=== PATIENT | female | born 1995 | race Caucasian/White ===

== ENCOUNTER 2018-01-18 21:37 | Observation (INO) | payer OTHER ==
[~2018-01-18] VITALS: Ht 160 cm; Wt 99.8 kg
[~2018-01-18 21:37] MED LIST: MACROBID 100 M100 MG PO; ZOFRAN ODT4 M1 SL
[2018-01-18 22:20] VITALS: BP 139/67
== END 2018-01-19 09:00 ==
LOC: CBCO 21:37 → GNO 22:13
DX: O47.1 False labor at or after 37 completed weeks of gestation (principal); Z3A.39 39 weeks gestation of pregnancy
CPT/HCPCS: G0378; G0463

== ENCOUNTER 2018-01-20 00:11 | Inpatient (IN) | payer OTHER ==
[~2018-01-20] VITALS: Ht 160 cm; Wt 104.3 kg
[2018-01-20 00:53] LABS: ABSOLUTE BASOPHIL COUNT 0 /CUMM (0.0-0.2); ABSOLUTE EOSINOPHIL COUNT 0.1 /CUMM (0.0-0.7); ABSOLUTE GRANULOCYTE CT 8.9 /CUMM (1.4-6.5); ABSOLUTE LYMPH COUNT 1.5 /CUMM (1.2-3.4); ABSOLUTE MONOCYTE COUNT 0.8 /CUMM (0.10-0.60); BASOPHIL % 0.2 % (0.0-2.0); EOSINOPHIL % 0.7 % (0-5); GRANULOCYTE % 78.6 % (42.2-75.2); HEMATOCRIT 33.1 % (37-47); MEAN CORPUSCULAR HGB 32.4 PG (27.0-31.0); MEAN CORPUSCULAR HGB CONC 34.6 G/DL (33.0-37.0); MEAN CORPUSCULAR VOLUME 93.8 FL (81.0-99.0); MEAN PLATELET VOLUME 8.5 FL (7.4-10.4); PLATELET COUNT 230 /CUMM (130-400); RBC DISTRIBUTION WIDTH 12.4 % (11.5-14.5); RED BLOOD CELL CT 3.53 /CUMM (4.20-5.40); WHITE BLOOD CELL COUNT 11.3 /CUMM (4.8-10.8)
--- NOTE | 2018-01-20 01:00 | History & Physical ---
General Information and HPI MD Statement: I have seen and personally examined YAO KIRK and documented this H&P. The patient is a 22 year old female at [39] weeks and [2] days gestation who presented with a chief complaint of [CTXS]. Source of Information: patient Exam Limitations: no limitations History of Present Illness: 22yo, , 39 2/7wks, c/o ctxs for 2 days, getting stronger and closer, came in for evaluation. denies VB or LOF, reports GFM care started at 8 wks, uncomplicated thus far. 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 EENTM: Reports: no symptoms. Cardiovascular: Reports: no symptoms. Respiratory: Reports: no symptoms. GI: Reports: no symptoms. Genitourinary: Reports: see HPI. Musculoskeletal: Reports: no symptoms. Skin: Reports: no symptoms. Neurological/Psychological: Reports: no symptoms. Hematologic/Endocrine: Reports: no symptoms. Immunologic/Allergic: Reports: no symptoms. All Other Systems: Reviewed and Negative Exam & Diagnostic Data Obstetric Exam Wgt Gained During : 47lbs Pelvimetry: adequate Dilation (cm): 5 Effacement (%): 90 Station: -2 Membranes: intact Fluid: unknown Fundal Height (cm): 39 Multiple Gestation? No Contractions: irregular Infant #1 - FHR Baseline: 140 Category: 1 Estimated Weight: 3300g Presentation: vertex Patient for Induction? No Physical Exam: VSS General: NAD Abdomen: gravid, soft, nontender. Ext: DCT (-) Labs Blood Type & Rh: O positive Antibody Screen: negative Hct/Hgb & Platelets #1: 10.9/34.3%,[id number] Hct/Hgb & Platelets #2: 10.7/34.7%,[id number] Rubella: non immune VDRL #1: negative VDRL #2: negative HbsAg: negative HIV #1: negative HIV #2 negative 1 Hr P Group B Strep: negative Initial Ultrasound: IUP at 8 wwks Anatomy Ultrasound: nl Genetic Testing: nl Last 24 Hrs of Labs/Jim: Laboratory Tests 01/20/18 0030: CBC w Diff NO MAN DIFF REQ, RBC 3.53 L, MCV 93.8, MCH 32.4 H, MCHC 34.6, RDW 12.4, MPV 8.5, Gran % 78.6 H, Lymphocytes % 13.6 L, Monocytes % 6.9, Eosinophils % 0.7, Basophils % 0.2, Absolute Granulocytes 8.9 H, Absolute Lymphocytes 1.5, Absolute Monocytes 0.8 H, Absolute Eosinophils 0.1, Absolute Basophils 0, Urine Color Pending, Urine Clarity Pending, Urine pH Pending, Ur Specific [place] Pending, Urine Protein Pending, Urine Ketones Pending, Urine Nitrite Pending, Urine Bilirubin Pending, Urine Urobilinogen Pending, Ur Leukocyte Esterase Pending, Ur Microscopic SEDIMENT EXAMINED, Urine RBC Pending, Urine Hemoglobin Pending, Urine Glucose Pending Assessment/Plan Assessment/Plan: 22yo, 39 2/7wks, labor 1. admit pt, admission labs 2. pt request epidural for pain management, will hydrate first ,then inform anesthesia 3. will monitor closley As Ranked By This Provider Problem List: 1. Core Measures Venous Thromboembolism VTE Risk Factors / No Mechanical VTE Prophylaxis d/t LowRisk-No Interven Req'd No VTE Pharm Prophylaxis d/t LowRisk-No Interven Req'd Attending Review Statement Attending Statement Attending MD Statement: examined this patient, discussed with family, discussed w/nursing
--- NOTE | 2018-01-20 05:12 | PN- OBGYN ---
Surgical Brief Attending Note Brief Attending Note: late entry for 3 PM pt is comfortable with epidural, no complaints on TOCO: ctxs irregular, FHR assuring will start pitocin agmentation, plan of care reveiwed with pt, she undertsand and agreed
--- NOTE | 2018-01-20 06:23 | PN- OBGYN ---
Surgical Brief Attending Note Brief Attending Note: pt is comfortable with epidural, no complaints. pitocin at 6 mU/min on TOCO: ctxs q 2 min, FHR baseline 140, moderate variability, + acels, no decels cervix 8/80%/-2 will continue current management, monitor closely
[2018-01-20 08:40] VITALS: BP 119/65
--- NOTE | 2018-01-20 08:42 | PN- OBGYN ---
Surgical Brief Attending Note Brief Attending Note: pt comfortable w/ epidural afeb, v/ss fht 140s moderate variability +acc no dec toco q 1-3min pit@ 3mu sve rim / 100 / -2 a/p P0 39wks protracted active labor on pit, and maternal status reassuring -cont current mgmt
--- NOTE | 2018-01-20 10:06 | PN- OBGYN ---
Surgical Brief Attending Note Brief Attending Note: pt c/o rectal pressure, afeb, v/ss fht 130s mod jose +acc no dec toco q 1-3 pit @ 3mu sve FD / -1, arom clr -contact anesthesia for epidural "top-off" -await descent of vtx to begin pushing
--- NOTE | 2018-01-20 12:09 | PN- OBGYN ---
Surgical Brief Attending Note Brief Attending Note: pt w/ intermittent rectal pressure afeb, v/ss fht 130s mod variability +acc occ mild jose dec toco q 2 pit@ 5mu sve FD / +1 -await descent of vtx or increased urge to begin pushing -ansvd
--- NOTE | 2018-01-20 16:10 | Labor & Delivery Summary ---
Delivery Summary Vaginal Delivery: Vaginal: spontaneous Episiotomy/Lacerations: Episiotomy/Lacerations: lac Type: 2nd deg perineal Repair: 2-0 tita Anesthesia: epidural Placenta: Placenta: spontanteous, normal, 3 vessel Anesthesia: block Cord PH Value: v - 7.4 Apgars - 1 Min: 9 Apgars - 5 Min: 9 Additional Comments: Pt FD / +2 and pushing w/ epidural. Controlled of live female. Head del over perineum from KAYLEEN. Mouth and nose bulb suctioned. No nuchal cord. Body del w/o difficulty. Baby to mom's chest. Cord clamped and cut. Cord gases sent. 3vc plac del spont intact. Sent to path for maternal temp. Fundus contracted. 2nd deg lac repaired 2-0 tita usual fashion. Good hemostasis. Pt bella well. EBL 400cc.
[2018-01-21 08:32] LABS: ABSOLUTE BASOPHIL COUNT 0 /CUMM (0.0-0.2); ABSOLUTE EOSINOPHIL COUNT 0.1 /CUMM (0.0-0.7); ABSOLUTE GRANULOCYTE CT 12.8 /CUMM (1.4-6.5); ABSOLUTE LYMPH COUNT 2.1 /CUMM (1.2-3.4); ABSOLUTE MONOCYTE COUNT 1.1 /CUMM (0.10-0.60); BASOPHIL % 0.1 % (0.0-2.0); EOSINOPHIL % 0.4 % (0-5); GRANULOCYTE % 79.6 % (42.2-75.2); HEMATOCRIT 28.9 % (37-47); MEAN CORPUSCULAR HGB 32.5 PG (27.0-31.0); MEAN CORPUSCULAR HGB CONC 34.4 G/DL (33.0-37.0); MEAN CORPUSCULAR VOLUME 94.5 FL (81.0-99.0); MEAN PLATELET VOLUME 8.9 FL (7.4-10.4); PLATELET COUNT 200 /CUMM (130-400); RED BLOOD CELL CT 3.06 /CUMM (4.20-5.40); WHITE BLOOD CELL COUNT 16.1 /CUMM (4.8-10.8)
--- NOTE | 2018-01-21 09:17 | PN- OBGYN ---
Surgical Brief Attending Note Brief Attending Note: pt feeling well. amb / void / bella po. pain well controlled w/ motrin. +bf and bottle. afeb, v/ss nad abd soft nt ff maryam mod lochia ext nt +1 b/l le ed hct 33.3-->28.9 a/p ppd 1 s/p , doing well -routine pp care -ant d/c home ita w/ f/u in office in 2 wks
[2018-01-22] MEDS ORDERED: IBUPROFEN800 M1 PO (11:24)
== END 2018-01-22 12:15 | DRG 560 ==
LOC: GNO 00:11
PROVIDERS: Obstetrics & Gynecology
PROC: 0KQM0ZZ Repair Perineum Muscle, Open Approach (ICD-10-PCS; principal; 2018-01-20)
PROC: 10E0XZZ Delivery of Products of Conception, External Approach (ICD-10-PCS; principal; 2018-01-20)
DX: O70.1 Second degree perineal laceration during delivery (principal); O76 Abnormality in fetal heart rate and rhythm complicating labor and delivery; Z3A.39 39 weeks gestation of pregnancy; Z37.0 Single live birth
CPT/HCPCS: GNOS; 81001; J2405; J7120